=== PATIENT | male | born 1945 | race Caucasian/White ===

== ENCOUNTER 2016-08-23 20:24 | Inpatient (IN) | payer MEDICARE ==
[~2016-08-23] VITALS: Ht 175.3 cm; Wt 55.1 kg
[~2016-08-23 20:24] MED LIST: ATEN50TA41 PO; CLON1TAB23 PO; DOXA1TAB2 PO; FAMO20TA7 PO; FERR325T20 PO; FLUT1DIS3 INH; GABA300C10 PO; METO25TA91 PO; NICO1PAT10 TD; ONDA8TAB12 PO; PRED5TAB PO; SENN8.6C2 PO; SUCR1TAB26 PO
[2016-08-23 21:00] LABS: HEMOGLOBIN 12.3 g/dL (13.7-18.0)
[2016-08-23] MEDS ORDERED: SODIUM CHLORIDE FLUSH 10ML SYR IVF ONE (21:00)
[2016-08-23 21:11] LABS: ASPARTATE AMINO TRANSFERASE 19 U/L (15-37); BLOOD UREA NITROGEN 11 mg/dL (7-18)
[2016-08-23 21:18] LABS: IS PT STATUS REG ER OR PRE ER? YES
[2016-08-23] MEDS ORDERED: POTASSIUM CHLORIDE 20 MEQ in SODIUM CHLORIDE 0.9% 250 ML IV ONE (21:30)
[2016-08-23] MEDS ORDERED: POTASSIUM CHLORIDE 20 MEQ TAB.ER.PRT PO ONE (21:30)
[2016-08-23] MEDS ORDERED: POTASSIUM CHLORIDE 20 MEQ TAB.ER.PRT ONE (21:31)
[2016-08-23] MEDS ORDERED: SODIUM CHLORIDE 0.9% 1,000 ML IV ONE (21:51)
[2016-08-23] MEDS ORDERED: ONDANSETRON 2MG/ML, 2ML IVPush PRN (22:00)
[2016-08-23] MEDS ORDERED: MORPHINE SULFATE 4 MG/ML, 1ML IVPush PRN (22:00)
[2016-08-23] MEDS ORDERED: IPRA0.2S35 INH (22:36)
[2016-08-23] MEDS ORDERED: CEFU500T50 PO (22:36)
[2016-08-23] MEDS ORDERED: CALC1TAB86 PO (22:36)
[2016-08-23] MEDS ORDERED: MAGN30OR PO (22:36)
[2016-08-23] MEDS ORDERED: DOXA1TAB2 PO (22:36)
[2016-08-23] MEDS ORDERED: LOSA50TA6 PO (22:36)
[2016-08-23] MEDS ORDERED: VANCOMYCIN PER PHARMACY MC PRN (23:30)
[2016-08-24] MEDS ORDERED: ACETAMINOPHEN 325 MG TABLET PO PRN
[2016-08-24] MEDS ORDERED: ENALAPRILAT 1.25 MG/ML, 2ML IVPush PRN
[2016-08-24] MEDS ORDERED: FUROSEMIDE 20 MG/2 ML IV ONE
[2016-08-24] MEDS ORDERED: POTASSIUM CHLORIDE 40 MEQ in SODIUM CHLORIDE 0.9% 500 ML IV ONE
[2016-08-24] MEDS ORDERED: LABETALOL 5MG/ML, 20ML IV PRN
[2016-08-24] MEDS ORDERED: FUROSEMIDE 20 MG/2 ML ONE (00:18)
[2016-08-24] MEDS ORDERED: PIPERACILLIN/TAZO/PMX 3.375GM 50 ML ONE (00:19)
[2016-08-24] MEDS: PIPERACILLIN/TAZO/PMX 3.375GM 50 ML IV SCH ×3 (00:22→18:46)
[2016-08-24 00:28] LABS: IS PT STATUS REG ER OR PRE ER? YES
[2016-08-24 01:00] VITALS: BP 166/78
[2016-08-24] MEDS ORDERED: PHARMACOKINETIC CONSULTATION MC ONE (01:00)
[2016-08-24] MEDS ORDERED: PHARMACOKINETIC MONITORING MC PRN (01:00)
[2016-08-24] MEDS: ENOXAPARIN 40 MG/0.4 ML SQ SCH (02:11)
[2016-08-24] MEDS ORDERED: IPRATROPIUM 0.5 MG/2.5 ML INHA NPPB PRN (02:30)
[2016-08-24 05:16] LABS: IS PT STATUS REG ER OR PRE ER? NO
[2016-08-24 05:26] LABS: ASPARTATE AMINO TRANSFERASE 19 U/L (15-37); BLOOD UREA NITROGEN 11 mg/dL (7-18)
[2016-08-24] MEDS: VANCOMYCIN 1,300 MG in SODIUM CHLORIDE 0.9% 250 ML IV SCH (06:13)
[2016-08-24 07:11] VITALS: BP 165/82
[2016-08-24] MEDS: FLUTICASONE/VILANTEROL 100-25MCG/INH INH SCH (09:00)
[2016-08-24] MEDS: FERROUS SULFATE 325 MG TABLET PO SCH ×2 (09:46→20:07)
[2016-08-24] MEDS: DOXAZOSIN 1MG TABLET PO SCH (09:46)
[2016-08-24] MEDS: LOSARTAN 50MG TABLET PO SCH (09:46)
[2016-08-24] MEDS: METOPROLOL SUCCINATE 25 MG TAB.ER.24H PO SCH (09:46)
[2016-08-24 12:25] VITALS: BP 159/76
[2016-08-24] MEDS: HYDROcodone/APAP 5/325 TABLET PO PRN ×2 (15:07→21:10)
[2016-08-24] MEDS ORDERED: OMNIPAQUE 350 MG/ML, 100ML BOTTLE ONE (18:30)
[2016-08-24 19:53] VITALS: BP 135/81
[2016-08-25] MEDS: PIPERACILLIN/TAZO/PMX 3.375GM 50 ML IV SCH ×4 (00:19→21:25)
[2016-08-25] MEDS: ENOXAPARIN 40 MG/0.4 ML SQ SCH (01:32)
[2016-08-25 02:04] VITALS: BP 133/78
[2016-08-25 05:09] LABS: HEMOGLOBIN 10.6 g/dL (13.7-18.0)
[2016-08-25 05:10] LABS: BLOOD UREA NITROGEN 11 mg/dL (7-18)
[2016-08-25] MEDS: VANCOMYCIN 1,300 MG in SODIUM CHLORIDE 0.9% 250 ML IV SCH (06:15)
[2016-08-25 07:50] VITALS: BP 168/80
[2016-08-25] MEDS: FLUTICASONE/VILANTEROL 100-25MCG/INH INH SCH (09:00)
[2016-08-25] MEDS ORDERED: POTASSIUM CHLORIDE 20 MEQ TAB.ER.PRT PO SCH (09:00)
[2016-08-25] MEDS ORDERED: FUROSEMIDE 20 MG/2 ML IV SCH (09:00)
[2016-08-25] MEDS: DOXAZOSIN 1MG TABLET PO SCH (09:16)
[2016-08-25] MEDS: FERROUS SULFATE 325 MG TABLET PO SCH ×2 (09:16→21:25)
[2016-08-25] MEDS: LOSARTAN 50MG TABLET PO SCH (09:16)
[2016-08-25] MEDS: METOPROLOL SUCCINATE 25 MG TAB.ER.24H PO SCH (09:17)
[2016-08-25 13:45] VITALS: BP 144/83
[2016-08-25] MEDS: HYDROcodone/APAP 5/325 TABLET PO PRN ×2 (15:05→21:25)
[2016-08-25 20:00] VITALS: BP 153/77
[2016-08-26] MEDS: ENOXAPARIN 40 MG/0.4 ML SQ SCH (01:55)
[2016-08-26 02:00] VITALS: BP 163/81
[2016-08-26] MEDS: PIPERACILLIN/TAZO/PMX 3.375GM 50 ML IV SCH (03:24)
[2016-08-26] MEDS: VANCOMYCIN 1,300 MG in SODIUM CHLORIDE 0.9% 250 ML IV SCH (05:20)
[2016-08-26 05:44] LABS: HEMOGLOBIN 11.2 g/dL (13.7-18.0)
[2016-08-26 05:57] LABS: BLOOD UREA NITROGEN 12 mg/dL (7-18)
[2016-08-26 07:35] VITALS: BP 151/81
[2016-08-26] MEDS: LEVOFLOXACIN/PMX 750MG/150ML 150 ML IV SCH (08:45)
[2016-08-26] MEDS: FERROUS SULFATE 325 MG TABLET PO SCH ×2 (08:46→21:00)
[2016-08-26] MEDS: FLUTICASONE/VILANTEROL 100-25MCG/INH INH SCH (08:46)
[2016-08-26] MEDS: LOSARTAN 50MG TABLET PO SCH (08:46)
[2016-08-26] MEDS: FUROSEMIDE 20 MG/2 ML IV SCH ×2 (08:46→21:01)
[2016-08-26] MEDS: POTASSIUM CHLORIDE 20 MEQ TAB.ER.PRT PO SCH ×2 (08:47→21:00)
[2016-08-26] MEDS: METOPROLOL SUCCINATE 25 MG TAB.ER.24H PO SCH (08:47)
[2016-08-26] MEDS: DOXAZOSIN 1MG TABLET PO SCH (08:48)
[2016-08-26] MEDS: ONDANSETRON 2MG/ML, 2ML IVP PRN ×2 (09:01→16:34)
[2016-08-26 14:30] VITALS: BP 118/71
[2016-08-26 20:00] VITALS: BP 127/71
[2016-08-27 01:15] VITALS: BP 132/83
[2016-08-27] MEDS: ENOXAPARIN 40 MG/0.4 ML SQ SCH (01:18)
[2016-08-27 06:20] LABS: HEMOGLOBIN 11.9 g/dL (13.7-18.0)
[2016-08-27 06:28] LABS: BLOOD UREA NITROGEN 15 mg/dL (7-18)
[2016-08-27 07:37] VITALS: BP 122/81
[2016-08-27] MEDS: LOSARTAN 50MG TABLET PO SCH (08:22)
[2016-08-27] MEDS: POTASSIUM CHLORIDE 20 MEQ TAB.ER.PRT PO SCH ×2 (08:22→19:48)
[2016-08-27] MEDS: DOXAZOSIN 1MG TABLET PO SCH (08:22)
[2016-08-27] MEDS: METOPROLOL SUCCINATE 25 MG TAB.ER.24H PO SCH (08:22)
[2016-08-27] MEDS: FERROUS SULFATE 325 MG TABLET PO SCH ×2 (08:22→19:48)
[2016-08-27] MEDS: LEVOFLOXACIN/PMX 750MG/150ML 150 ML IV SCH (08:23)
[2016-08-27] MEDS: FLUTICASONE/VILANTEROL 100-25MCG/INH INH SCH (08:23)
[2016-08-27] MEDS: FUROSEMIDE 20 MG/2 ML IV SCH (08:26)
[2016-08-27] MEDS: metroNIDAZOLE 500 MG TABLET PO SCH ×2 (12:20→19:48)
[2016-08-27 15:11] VITALS: BP 126/66
[2016-08-27 21:50] VITALS: BP 124/64
[2016-08-28] MEDS: ENOXAPARIN 40 MG/0.4 ML SQ SCH (00:59)
[2016-08-28 01:01] VITALS: BP 127/69
[2016-08-28] MEDS: metroNIDAZOLE 500 MG TABLET PO SCH ×2 (04:08→17:34)
[2016-08-28 06:20] LABS: BLOOD UREA NITROGEN 17 mg/dL (7-18)
[2016-08-28] MEDS ORDERED: MAGNESIUM SULFATE PMX 2GM/50ML 50 ML IV ONE (07:30)
[2016-08-28 07:41] LABS: HEMOGLOBIN 11.7 g/dL (13.7-18.0)
[2016-08-28] MEDS: POTASSIUM CHLORIDE 20 MEQ TAB.ER.PRT PO SCH ×2 (07:43→21:42)
[2016-08-28] MEDS: METOPROLOL SUCCINATE 25 MG TAB.ER.24H PO SCH (07:43)
[2016-08-28] MEDS: LEVOFLOXACIN/PMX 750MG/150ML 150 ML IV SCH (07:43)
[2016-08-28] MEDS: LOSARTAN 50MG TABLET PO SCH (07:43)
[2016-08-28] MEDS: DOXAZOSIN 1MG TABLET PO SCH (07:43)
[2016-08-28] MEDS: FERROUS SULFATE 325 MG TABLET PO SCH ×2 (07:43→21:42)
[2016-08-28] MEDS: FLUTICASONE/VILANTEROL 100-25MCG/INH INH SCH (07:44)
[2016-08-28] MEDS: FUROSEMIDE 20 MG/2 ML IV SCH (07:44)
[2016-08-28 09:24] VITALS: BP 111/78
[2016-08-28 13:39] VITALS: BP 114/63
[2016-08-28] MEDS: HYDROcodone/APAP 5/325 TABLET PO PRN ×2 (15:56→21:43)
[2016-08-28 18:57] VITALS: BP 100/61
[2016-08-28] MEDS ORDERED: ONDANSETRON ODT 4 MG ONE (21:40)
[2016-08-28] MEDS: ONDANSETRON 2MG/ML, 2ML IVP PRN (21:43)
[2016-08-29] VITALS (9 sets, daily range): BP systolic 101–136; BP diastolic 66–78
[2016-08-29] MEDS: metroNIDAZOLE 500 MG TABLET PO SCH ×3 (01:11→18:33)
[2016-08-29] MEDS: ENOXAPARIN 40 MG/0.4 ML SQ SCH (01:11)
[2016-08-29] MEDS: HYDROcodone/APAP 5/325 TABLET PO PRN ×3 (05:42→19:31)
[2016-08-29 06:16] LABS: HEMOGLOBIN 13.1 g/dL (13.7-18.0)
[2016-08-29 06:17] LABS: BLOOD UREA NITROGEN 24 mg/dL (7-18)
[2016-08-29] MEDS: METOPROLOL SUCCINATE 25 MG TAB.ER.24H PO SCH (07:42)
[2016-08-29] MEDS: POTASSIUM CHLORIDE 20 MEQ TAB.ER.PRT PO SCH ×2 (07:42→13:17)
[2016-08-29] MEDS: LOSARTAN 50MG TABLET PO SCH (07:42)
[2016-08-29] MEDS: FUROSEMIDE 20 MG/2 ML IV SCH (07:43)
[2016-08-29] MEDS: DOXAZOSIN 1MG TABLET PO SCH (07:43)
[2016-08-29] MEDS: FLUTICASONE/VILANTEROL 100-25MCG/INH INH SCH (07:43)
[2016-08-29] MEDS ORDERED: SODIUM CHLORIDE 0.9% 1,000ML IVBOLUS ONE (08:00)
[2016-08-29] MEDS: LEVOFLOXACIN/PMX 750MG/150ML 150 ML IV SCH (11:39)
[2016-08-29] MEDS: FERROUS SULFATE 325 MG TABLET PO SCH ×2 (13:17→22:09)
[2016-08-30] MEDS: HYDROcodone/APAP 5/325 TABLET PO PRN ×2 (01:17→09:50)
[2016-08-30] MEDS: ENOXAPARIN 30 MG/0.3 ML SQ SCH (01:17)
[2016-08-30] MEDS: metroNIDAZOLE 500 MG TABLET PO SCH ×3 (01:35→17:34)
[2016-08-30] MEDS ORDERED: OXYcodone/APAP 5/325MG TABLET ONE (03:41)
[2016-08-30] MEDS: OXYcodone/APAP 5/325MG TABLET PO PRN ×4 (03:43→17:34)
[2016-08-30 04:00] VITALS: BP 154/82
[2016-08-30 06:19] LABS: HEMOGLOBIN 12.1 g/dL (13.7-18.0)
[2016-08-30 06:33] LABS: BLOOD UREA NITROGEN 27 mg/dL (7-18)
[2016-08-30 07:51] VITALS: BP 146/84
[2016-08-30] MEDS: FLUTICASONE/VILANTEROL 100-25MCG/INH INH SCH (09:13)
[2016-08-30] MEDS: DOXAZOSIN 1MG TABLET PO SCH (09:13)
[2016-08-30] MEDS: LEVOFLOXACIN/PMX 750MG/150ML 150 ML IV SCH (09:13)
[2016-08-30] MEDS: LOSARTAN 50MG TABLET PO SCH (09:14)
[2016-08-30] MEDS: POTASSIUM CHLORIDE 20 MEQ TAB.ER.PRT PO SCH (09:14)
[2016-08-30] MEDS: FERROUS SULFATE 325 MG TABLET PO SCH ×2 (09:14→20:47)
[2016-08-30] MEDS: METOPROLOL SUCCINATE 25 MG TAB.ER.24H PO SCH (09:14)
[2016-08-30 13:54] VITALS: BP 133/87
[2016-08-30] MEDS: POTASSIUM CHLORIDE 10 MEQ in D5%-0.9% NACL 1,000 ML IV SCH (14:12)
[2016-08-30] MEDS: LORazepam 2 MG/ML, 1ML IVPush PRN (18:18)
[2016-08-30 18:32] VITALS: BP 149/85
[2016-08-31] MEDS: ENOXAPARIN 30 MG/0.3 ML SQ SCH (01:31)
[2016-08-31] MEDS: metroNIDAZOLE 500 MG TABLET PO SCH ×3 (01:31→17:00)
[2016-08-31 01:48] VITALS: BP 146/83
[2016-08-31] MEDS: POTASSIUM CHLORIDE 10 MEQ in D5%-0.9% NACL 1,000 ML IV SCH ×2 (04:45→23:22)
[2016-08-31] MEDS: OXYcodone/APAP 5/325MG TABLET PO PRN ×2 (04:54→20:43)
[2016-08-31 06:14] LABS: HEMOGLOBIN 12.3 g/dL (13.7-18.0)
[2016-08-31 06:18] LABS: BLOOD UREA NITROGEN 17 mg/dL (7-18)
[2016-08-31 08:36] VITALS: BP 160/78
[2016-08-31] MEDS: LOSARTAN 50MG TABLET PO SCH (09:25)
[2016-08-31] MEDS: FLUTICASONE/VILANTEROL 100-25MCG/INH INH SCH (09:25)
[2016-08-31] MEDS: DOXAZOSIN 1MG TABLET PO SCH (09:25)
[2016-08-31] MEDS: FERROUS SULFATE 325 MG TABLET PO SCH ×2 (09:26→20:43)
[2016-08-31] MEDS: METOPROLOL SUCCINATE 25 MG TAB.ER.24H PO SCH (09:26)
[2016-08-31 12:34] VITALS: BP 158/90
[2016-08-31 18:42] VITALS: BP 145/80
[2016-08-31] MEDS: ONDANSETRON 2MG/ML, 2ML IVP PRN (20:43)
[2016-09-01] MEDS: ENOXAPARIN 40 MG/0.4 ML SQ SCH (02:06)
[2016-09-01] MEDS: metroNIDAZOLE 500 MG TABLET PO SCH ×3 (02:06→16:11)
[2016-09-01 03:02] VITALS: BP 134/71
[2016-09-01 08:21] VITALS: BP 137/77
[2016-09-01] MEDS ORDERED: LEVOFLOXACIN/PMX 750MG/150ML 150 ML IV SCH (09:00)
[2016-09-01] MEDS: LOSARTAN 50MG TABLET PO SCH (09:28)
[2016-09-01] MEDS: DOXAZOSIN 1MG TABLET PO SCH (09:28)
[2016-09-01] MEDS: FERROUS SULFATE 325 MG TABLET PO SCH ×2 (09:28→20:53)
[2016-09-01] MEDS: FLUTICASONE/VILANTEROL 100-25MCG/INH INH SCH (09:28)
[2016-09-01] MEDS: METOPROLOL SUCCINATE 25 MG TAB.ER.24H PO SCH (09:29)
[2016-09-01] MEDS: LEVOFLOXACIN 750 MG TABLET PO SCH (13:00)
[2016-09-01 14:21] VITALS: BP 120/69
[2016-09-01] MEDS: ONDANSETRON 2MG/ML, 2ML IVP PRN (16:11)
[2016-09-01] MEDS: HYDROcodone/APAP 5/325 TABLET PO PRN (16:31)
[2016-09-01 18:45] VITALS: BP 136/77
[2016-09-01] MEDS: OXYcodone/APAP 5/325MG TABLET PO PRN (20:53)
[2016-09-02] MEDS: metroNIDAZOLE 500 MG TABLET PO SCH ×3 (00:20→17:01)
[2016-09-02] MEDS: LORazepam 2 MG/ML, 1ML IVPush PRN (00:20)
[2016-09-02] MEDS: ENOXAPARIN 40 MG/0.4 ML SQ SCH (00:20)
[2016-09-02 00:21] VITALS: BP 114/68
[2016-09-02 08:31] VITALS: BP 124/73
[2016-09-02] MEDS: METOPROLOL SUCCINATE 25 MG TAB.ER.24H PO SCH (09:31)
[2016-09-02] MEDS: FLUTICASONE/VILANTEROL 100-25MCG/INH INH SCH (09:31)
[2016-09-02] MEDS: DOXAZOSIN 1MG TABLET PO SCH (09:31)
[2016-09-02] MEDS: FERROUS SULFATE 325 MG TABLET PO SCH ×2 (09:31→21:29)
[2016-09-02] MEDS: LOSARTAN 50MG TABLET PO SCH (09:31)
[2016-09-02] MEDS: LEVOFLOXACIN 750 MG TABLET PO SCH (12:51)
[2016-09-02 13:05] VITALS: BP 102/58
[2016-09-02] MEDS: ONDANSETRON 2MG/ML, 2ML IVP PRN ×2 (14:31→22:00)
[2016-09-02] MEDS: HYDROcodone/APAP 5/325 TABLET PO PRN (15:21)
[2016-09-02 19:28] VITALS: BP 127/76
[2016-09-02] MEDS: OXYcodone/APAP 5/325MG TABLET PO PRN (21:28)
[2016-09-03 00:48] VITALS: BP 145/75
[2016-09-03] MEDS: ENOXAPARIN 40 MG/0.4 ML SQ SCH (00:51)
[2016-09-03] MEDS: metroNIDAZOLE 500 MG TABLET PO SCH ×3 (00:51→17:57)
[2016-09-03] MEDS: OXYcodone/APAP 5/325MG TABLET PO PRN ×3 (05:36→21:53)
[2016-09-03] MEDS: ONDANSETRON 2MG/ML, 2ML IVP PRN ×3 (05:36→20:05)
[2016-09-03 08:00] VITALS: BP 117/70
[2016-09-03] MEDS: FLUTICASONE/VILANTEROL 100-25MCG/INH INH SCH (08:36)
[2016-09-03] MEDS: FERROUS SULFATE 325 MG TABLET PO SCH ×2 (08:37→20:05)
[2016-09-03] MEDS: METOPROLOL SUCCINATE 25 MG TAB.ER.24H PO SCH (08:37)
[2016-09-03] MEDS: LOSARTAN 50MG TABLET PO SCH (08:37)
[2016-09-03] MEDS: DOXAZOSIN 1MG TABLET PO SCH (08:43)
[2016-09-03] MEDS ORDERED: LEVO750T26 PO (11:19)
[2016-09-03] MEDS ORDERED: METR500T PO (11:19)
[2016-09-03] MEDS: LEVOFLOXACIN 750 MG TABLET PO SCH (13:18)
[2016-09-03 14:00] VITALS: BP 109/67
[2016-09-03 19:10] VITALS: BP 133/74
[2016-09-03] MEDS: HYDROcodone/APAP 5/325 TABLET PO PRN (20:05)
[2016-09-04 00:31] VITALS: BP 134/80
[2016-09-04] MEDS: ENOXAPARIN 40 MG/0.4 ML SQ SCH (00:31)
[2016-09-04] MEDS: metroNIDAZOLE 500 MG TABLET PO SCH ×3 (00:31→17:33)
[2016-09-04] MEDS: OXYcodone/APAP 5/325MG TABLET PO PRN ×4 (04:10→22:22)
[2016-09-04 07:59] VITALS: BP 124/73
[2016-09-04] MEDS: FLUTICASONE/VILANTEROL 100-25MCG/INH INH SCH (08:26)
[2016-09-04] MEDS: DOXAZOSIN 1MG TABLET PO SCH (08:26)
[2016-09-04] MEDS: METOPROLOL SUCCINATE 25 MG TAB.ER.24H PO SCH (08:27)
[2016-09-04] MEDS: LOSARTAN 50MG TABLET PO SCH (08:27)
[2016-09-04] MEDS: FERROUS SULFATE 325 MG TABLET PO SCH ×2 (08:27→20:33)
[2016-09-04] MEDS: HYDROcodone/APAP 5/325 TABLET PO PRN ×2 (08:27→20:33)
[2016-09-04] MEDS: LEVOFLOXACIN 750 MG TABLET PO SCH (13:16)
[2016-09-04 15:43] VITALS: BP 132/79
[2016-09-04 17:21] VITALS: BP 127/76
[2016-09-04 19:33] VITALS: BP 109/66
[2016-09-04] MEDS: LORazepam 2 MG/ML, 1ML IVPush PRN (22:22)
[2016-09-05 02:40] VITALS: BP 121/67
[2016-09-05] MEDS: metroNIDAZOLE 500 MG TABLET PO SCH ×2 (04:02→09:02)
[2016-09-05] MEDS: OXYcodone/APAP 5/325MG TABLET PO PRN ×2 (04:02→10:58)
[2016-09-05] MEDS: ENOXAPARIN 40 MG/0.4 ML SQ SCH (04:03)
[2016-09-05] MEDS ORDERED: ASPIRIN 325 MG TABLET EC PO SCH (06:00)
[2016-09-05 06:45] VITALS: BP 128/73
[2016-09-05] MEDS: DOXAZOSIN 1MG TABLET PO SCH (09:02)
[2016-09-05] MEDS: FERROUS SULFATE 325 MG TABLET PO SCH (09:02)
[2016-09-05] MEDS: METOPROLOL SUCCINATE 25 MG TAB.ER.24H PO SCH (09:02)
[2016-09-05] MEDS: LOSARTAN 50MG TABLET PO SCH (09:02)
[2016-09-05] MEDS: FLUTICASONE/VILANTEROL 100-25MCG/INH INH SCH (09:02)
[2016-09-05] MEDS: ONDANSETRON 2MG/ML, 2ML IVP PRN (09:11)
[2016-09-05] MEDS ORDERED: LEVO750T26 PO (09:15)
[2016-09-05] MEDS ORDERED: ASPI-650 PO (09:43)
[2016-09-05] MEDS: LEVOFLOXACIN 750 MG TABLET PO SCH (12:32)
== END 2016-09-05 12:48 | DRG 177 ==
LOC: ED 21:46 → EDIP 21:51 → 4WST 08-24 00:37 → 4EST 08-29 17:35
PROVIDERS: ADMIT Internal Medicine; ATTEND Internal Medicine
DX: J69.0 Pneumonitis due to inhalation of food and vomit (principal); G93.41 Metabolic encephalopathy; I50.33 Acute on chronic diastolic (congestive) heart failure; J96.01 Acute respiratory failure with hypoxia; E43 Unspecified severe protein-calorie malnutrition; A04.7 Enterocolitis due to Clostridium difficile; Z68.1 Body mass index [BMI] 19.9 or less, adult; J98.11 Atelectasis; K86.1 Other chronic pancreatitis; E87.6 Hypokalemia; D63.8 Anemia in other chronic diseases classified elsewhere; E83.42 Hypomagnesemia; I11.0 Hypertensive heart disease with heart failure; G62.9 Polyneuropathy, unspecified; I48.91 Unspecified atrial fibrillation; K44.9 Diaphragmatic hernia without obstruction or gangrene; N40.0 Benign prostatic hyperplasia without lower urinary tract symptoms; Y95 Nosocomial condition; Z79.899 Other long term (current) drug therapy; Z87.891 Personal history of nicotine dependence
CPT/HCPCS: 36415; 71010; 71275; 80048; 80053; 80202; 81003; 83605; 83735; 83880; 84100; 84145; 84484; 85025; 85610; 87040; 87324; 87493; 93005; 96365; 96366; J1650; J1956; J2405; J2543; J3370; J3480; J7042; Q9967; J1940; J2060; J3475; J7030; J7040; J7050